=== PATIENT | female | born 1935 | race Caucasian/White ===

== ENCOUNTER → 2016-08-22 | Outpatient (CLI) | payer MEDICARE, BC ==
[~2016-08-22] MED LIST: ALEVE220 MG PO; ALLEGRA-D 12 H1 EACH PO; ASPIRIN325 MG PO; GENICIN500 MG PO; LUMIGAN 0.01%2.5 ML EYEBOTH; MOBIC15 MG PO; MURO-12815 ML EYEBOTH; NEURONTIN100 MG PO; NEURONTIN300 MG PO; TUMS500 MG PO; TYLENOL325 MG PO; VISION PLUS LU1 EACH PO; VITAMIN D1000 UNI1 PO
== END | disposition short-term general hospital (02) ==
LOC: CLORTH 07:59
DX: Z47.1 Aftercare following joint replacement surgery (principal); Z96.651 Presence of right artificial knee joint